=== PATIENT | male | born 1995 | race Caucasian/White ===

== ENCOUNTER 2017-01-31 23:00 | Emergency (ER) | payer OTHER ==
[2017-01-31 23:18] VITALS: BP 115/66; PULSE 80; TEMP 98; O2SAT 98
--- NOTE | 2017-02-01 00:30 | C.PDOC ---
History Of Present Illness 21 y/o male presents to ED with complaints of sudden onset of bodyaches which is associated with nausea and one episode of vomiting. Patient denies fever, chills, diarrhea, abdominal pain or other complaints. Time Seen by Provider: 01/31/17 23:19 Chief Complaint (Nursing): Medical Clearance History Per: Patient History/Exam Limitations: no limitations Onset/Duration Of Symptoms: Hrs Current Symptoms Are (Timing): Still Present Severity: Mild Reports Recently: Seen In ED Recent travel outside of the [place]: No Additional History Per: Patient Past Medical History Reviewed: Historical Data, Nursing Documentation, Vital Signs Vital Signs: Last Vital Signs Temp 98 F 01/31/17 23:15 Pulse 80 01/31/17 23:15 Resp 20 02/01/17 00:50 BP 115/66 01/31/17 23:15 Pulse Ox 98 02/01/17 00:58 Family History: States: No Known Family Hx - Social History Hx Tobacco Use: No Hx Alcohol Use: No Hx Substance Use: No - Immunization History Hx Tetanus Toxoid Vaccination: No Hx Influenza Vaccination: No Hx Pneumococcal Vaccination: No Review Of Systems Except As Marked, All Systems Reviewed And Found Negative. Constitutional: Negative for: Fever, Chills Cardiovascular: Negative for: Chest Pain Gastrointestinal: Positive for: Nausea (with movement), Vomiting (1 episode). Negative for: Abdominal Pain, Diarrhea Neurological: Negative for: Change in Speech, Seizures, Dizziness Physical Exam - Physical Exam Appears: Non-toxic, No Acute Distress Skin: Normal Color, Warm, No Rash Head: Atraumatic, Normacephalic Eye(s): bilateral: Normal Inspection, PERRL, EOMI Ear(s): Bilateral: Normal Oral Mucosa: Moist Throat: Normal Neck: Normal ROM, Supple Chest: Symmetrical, No Tenderness Cardiovascular: Rhythm Regular, No Friction Rub, No Murmur Respiratory: Normal Breath Sounds, No Rales, No Rhonchi, No Wheezing Gastrointestinal/Abdominal: Normal Exam, Soft, No Tenderness, No Guarding, No Rebound Back: Normal Inspection Extremity: Normal ROM, No Swelling Neurological/Psych: Oriented x3, Normal Speech, Normal Cognition, Normal Motor Gait: Steady ED Course And Treatment O2 Sat by Pulse Oximetry: 98 (room air ) Pulse Ox Interpretation: Normal Medical Decision Making Medical Decision Making: Impression: 21 y/o male with complaints of shoulder and back pain with 1 episode of vomiting . Associated nausea when walking. Patient denies fever, chills , diarrhea. Physical exam was normal. Plan: Zofran ODT and Toradol Progress: Patient was given Zofran ODT for nausea and vomiting, Toradol for pain. Patient is in stable condition and will be discharged home. Disposition - Disposition Referrals: [facility] [Outside] Disposition: HOME/ ROUTINE Disposition Time: 00:28 Condition: GOOD Additional Instructions: Follow up with the medical doctor within 1-2 days without fail. Return if worsened. s Prescriptions: Ibuprofen [Motrin] 600 mg PO TID #21 tab Ondansetron ODT [Zofran ODT] 1 odt PO BID PRN #10 odt PRN Reason: Nausea/Vomiting Instructions: Viral Syndrome (ED) Forms: Work Excuse - Clinical Impression Clinical Impression: Medical assessment, Viral syndrome - PA / [employer] ENGINEER / Resident Statement MD/DO has examined the patient and agrees with the treatment plan. - Scribe Statement Elizabeth Yoder All medical record entries made by the Scribe were at my direction and personally dictated by me. I have reviewed the chart and agree that the record accurately reflects my personal performance of the history, physical exam, medical decision making, and the department course for this patient. I have also personally directed, reviewed, and agree with the discharge instructions and disposition.
[2017-02-01 00:50] VITALS: RESP 20
== END 2017-02-01 00:49 | disposition home or self-care (01) ==
LOC: C.ER 23:00
DX: B34.9 Viral infection, unspecified (principal)
CPT/HCPCS: 96372; 99282; J1885